=== PATIENT | female | born 1990 | race African-American/Black ===

== ENCOUNTER 2018-11-25 20:06 | Emergency (ER) | payer OTHER ==
[~2018-11-25] VITALS: Ht 160 cm; Wt 181.4 kg
[2018-11-25 20:09] VITALS: BP 145/70
[2018-11-25] MEDS ORDERED: BIRTH CONTROL (20:13)
[2018-11-25] MEDS ORDERED: TRIAMCINOLONE A15 G3 TOP (21:31)
== END 2018-11-25 22:50 | disposition home or self-care (01) ==
LOC: ER 20:06
DX: L30.1 Dyshidrosis [pompholyx] (principal); J45.909 Unspecified asthma, uncomplicated

== ENCOUNTER 2018-12-18 14:21 | Emergency (ER) | payer OTHER ==
[~2018-12-18] VITALS: Ht 160 cm; Wt 129.3 kg
[~2018-12-18 14:21] MED LIST: BIRTH CONTROL; TRIAMCINOLONE A15 G3 TOP
[2018-12-18 14:22] VITALS: BP 139/83
[2018-12-18] MEDS ORDERED: KEFLEX500 M1 PO (14:46)
[2018-12-18] MEDS ORDERED: ZYRTEC10 M2 PO (14:46)
== END 2018-12-18 14:57 | disposition home or self-care (01) ==
LOC: ER 14:21
DX: S40.862A Insect bite (nonvenomous) of left upper arm, initial encounter (principal); J45.909 Unspecified asthma, uncomplicated; W57.XXXA Bitten or stung by nonvenomous insect and other nonvenomous arthropods, initial encounter; Y93.89 Activity, other specified; Y92.89 Other specified places as the place of occurrence of the external cause; Y99.8 Other external cause status

== ENCOUNTER 2018-12-29 10:59 | Emergency (ER) | payer OTHER ==
[~2018-12-29] VITALS: Ht 160 cm; Wt 124.7 kg
[~2018-12-29 10:59] MED LIST changes: +KEFLEX500 M1 PO; +ZYRTEC10 M2 PO
[2018-12-29 12:57] LABS: ABSOLUTE NEUTROPHILS 5.1 thou/uL (1.4-8.2); BASOPHILS 0.4 % (0.0-2.0); EOSINOPHILS 1.9 % (0.0-3.0); HEMATOCRIT 30.4 % (37.0-47.0); HEMOGLOBIN 9.8 gm/dL (12.0-15.0); LYMPHOCYTES 26.3 % (24.0-44.0); MCH 20.4 pg (26.0-34.0); MCHC 32.1 g/dL (28.0-37.0); MCV 63.7 fL (80.0-100.0); PLATELET COUNT 337 thou/uL (150-400); POLYS 66.4 % (36.0-66.0); RBC 4.78 mil/uL (4.20-5.00); RDW 19.1 % (10.5-14.5); WBC 7.7 thou/uL (4.0-11.0)
[2018-12-29 13:05] LABS: ANION GAP 7 mmol/L (7-16); BUN 9 mg/dL (7-18); CHLORIDE 104 mmol/L (98-107); CO2 27 mmol/L (21-32); CREATININE 0.8 mg/dL (0.6-1.0); GLUCOSE 87 mg/dL (74-106); POTASSIUM 3.9 mmol/L (3.5-5.1); SODIUM 138 mmol/L (136-145)
[2018-12-29 13:15] LABS: ALBUMIN 3.2 g/dL (3.4-5.0); ANISOCYTOSIS 1+; HYPOCHROMASIA 1+; SGOT 13 U/L (15-37); SGPT 16 U/L (30-65); TOTAL BILIRUBIN 0.4 mg/dL (<0.1-1.0); TOTAL PROTEIN 7.3 g/dL (6.4-8.2); TROPONIN-I <0.06 ng/mL (<0.06)
[2018-12-29 13:16] LABS: MICROCYTES 1+
[2018-12-29] MEDS ORDERED: NAPROSYN500 MG PO (13:29)
[2018-12-29] MEDS ORDERED: IRON325 PO (13:30)
[2018-12-29 14:00] VITALS: BP 120/48
[2018-12-29] MEDS ORDERED: PRILOSEC OTC20 MG PO (14:05)
[2018-12-29] MEDS ORDERED: NORCO 5-325 TA1 EAC1 PO (14:05)
[2018-12-29] MEDS ORDERED: DOXYCYCLINE 10100 MG PO (14:05)
--- NOTE | 2018-12-29 16:15 | EKG ---
[address] [address] [place] [address] ELECTROCARDIOGRAM REPORT Name: DEDRICK TOURE Room #: DEP VICTOR MANUEL Owen#: [id number] Admission: 12/29/18 Attend Phys: Discharge: 12/29/18 Date of : 89 Report #: [id number] THIS REPORT FOR: //name// [facility] ED Test Date: 2018-12-29 Test Time: 11:03:24 Pat Name: DEDRICK TOURE Department: Room: Gender: F Professional Advisor: DAGOBERTOVAISRAEL : 1990 Requested By: John Ramsey Order Number: [id number] MD: Jordon Bhatt Measurements Intervals [place] Rate: 85 P: 50 NM: 167 QRS: -11 QRSD: 105 T: -6 QT: 378 QTc: 450 Interpretive Statements Sinus rhythm Borderline T abnormalities, anterior leads Baseline wander in lead(s) II No previous ECG available for comparison Electronically Signed On 12-29-2018 16:15:20 CDT by Jordon Bhatt [email or web address] <ELECTRONICALLY SIGNED> By: Jordon Bhatt MD, [facility] 12/29/18 1615 1103 1103 Jordon Bhatt MD, FACC /EPI
== END 2018-12-29 14:00 | disposition home or self-care (01) ==
LOC: ER 10:59
PROVIDERS: Physician Assistant
DX: D64.9 Anemia, unspecified (principal); J18.9 Pneumonia, unspecified organism; R07.89 Other chest pain; J45.909 Unspecified asthma, uncomplicated

== ENCOUNTER 2019-01-20 15:50 | Emergency (ER) | payer OTHER ==
[~2019-01-20] VITALS: Ht 160 cm; Wt 131.1 kg
[~2019-01-20 15:50] MED LIST changes: +DOXYCYCLINE 10100 MG PO; +IRON325 PO; +NAPROSYN500 MG PO; +NORCO 5-325 TA1 EAC1 PO; +PRILOSEC OTC20 MG PO
[2019-01-20 15:56] VITALS: BP 123/74
[2019-01-20] MEDS ORDERED: ACYCLOVIR 400400 MG PO (16:45)
[2019-01-20] MEDS ORDERED: TRIAMCINOLONE A80 G2 TOP (16:45)
[2019-01-20] MEDS ORDERED: UNISOM50 MG PO (16:47)
[2019-01-20] MEDS ORDERED: NORCO 7.5-3251 EACH PO (16:56)
== END 2019-01-20 17:03 | disposition home or self-care (01) ==
LOC: ER 15:50
DX: L30.9 Dermatitis, unspecified (principal); B00.9 Herpesviral infection, unspecified; J45.909 Unspecified asthma, uncomplicated